=== PATIENT | male | born 1980 | race Caucasian/White ===

== ENCOUNTER 2025-02-27 19:09 | Emergency (ER) | payer MEDICAID, SELFPAY ==
[2025-02-27 19:11] VITALS: BMI 25.7
[2025-02-27 19:54] VITALS: BP 144/85; PULSE 105; RESP 20; TEMP 37.3; O2SAT 98
--- NOTE | 2025-02-27 20:04 | XR_ITS ---
Examination: Foot, left, 3 views Technique: AP, oblique, lateral views foot, 3 views Date and time of exam: February 27, 20252016 hrs. Indications: Injury to the foot 4 days ago, foot pain Findings: Soft tissue swelling plantar aspect of foot with subtle areas of air density No opaque foreign body No fracture No cortical bone destruction Impression: Soft tissue swelling plantar aspect of the foot, consider ultrasound soft tissue foot follow-up to assess for plantar soft tissue abscess No opaque foreign body
[2025-02-27 20:50] LABS: Basophils # (Auto) 0.0 Thou/mm3 (0.0-0.2); Basophils % (Auto) 0 % (0-2.5); Eosinophils # (Auto) 0.3 Thou/mm3 (0.0-0.5); Eosinophils % (Auto) 2 % (0-10); Hematocrit 46.4 % (41.0-53.0); Hemoglobin 16.1 g/dL (13.5-16.0); Immature Granulocytes Auto 0.03 Thou/mm3 (0.00-0.00); Lymphocytes # (Auto) 2.0 Thou/mm3 (1.0-4.8); Lymphocytes % (Auto) 16 % (10-50); Mean Corpuscular HGB Conc 34.7 g/dl (31.0-37.0); Mean Corpuscular Hemoglobin 30.8 pg (25.0-35.0); Mean Corpuscular Volume 89 fL (80-100); Monocytes # (Auto) 1.0 Thou/mm3 (0.0-0.8); Monocytes % (Auto) 8 % (0-12); Neutrophils # (Auto) 9.0 Thou/mm3 (1.8-7.7); Neutrophils % (Auto) 73 % (37-80); Nucleated Red Blood Cell # 0.00 Thou/mm3 (0.00-0.00); Nucleated Red Blood Cell % 0 /100 WBC (0); Platelet Count 255 Thou/mm3 (140-440); RDW Standard Deviation 42.6 fL (35.1-43.9); Red Blood Count 5.22 Miln/mm3 (4.50-5.90); White Blood Count 12.2 Thou/mm3 (3.8-10.6)
[2025-02-27] MEDS: DIPHTH,PERTUSS(ACELL),TET VAC 0.5 ML SYR- ADULT IMi (21:04)
[2025-02-27 21:07] LABS: Alanine Aminotransferase 20 U/L (10-49); Albumin, Serum 4.2 gm/dL (3.5-5.0); Albumin/Globulin Ratio 1.5 (1.2-2.2); Alkaline Phosphatase 90 U/L (46-116); Anion Gap 11 (7-16); Aspartate Amino Transferase 23 U/L (0-34); BUN/Creatinine Ratio 9 Ratio (12-20); Bilirubin,Total 0.4 mg/dL (0.3-1.2); Blood Urea Nitrogen 8 mg/dL (9-23); Calcium 9.7 mg/dL (8.3-10.6); Calcium (Corrected) 9.7 mg/dL (8.5-10.1); Carbon Dioxide 25.4 mMol/L (20.0-31.0); Chloride 104 mMol/L (98-107); Creatinine (Component) 0.9 mg/dL (0.6-1.3); Estimated Creatinine Clearance 113.9 mL/min (>60); Globulin 2.8 gm/dL (2.3-3.5); Glucose 90 mg/dL (74-106); Osmolality,Calculated 277 (275-295); Potassium 4.1 mMol/L (3.4-5.1); Sodium 140 mMol/L (136-145); Total Protein 7.0 gm/dL (5.7-8.2); eGFR > 60 See Note
--- NOTE | 2025-02-27 21:52 | EDNOTE_ITS ---
ED Skin Abcess FB-RME/HPI General Chief complaint: Extremity Injury, Lower Stated complaint: L FOOT INFECTION Time Seen by Provider: 02/27/25 19:36 Arrival date/time: 02/27/25 19:09 This is a case of 44-year-old male with no medical history came in in the emergency room due to left foot pain swelling and redness for 3 days secondary to a punctured wound on the left foot history of present illness started 3 days prior to arrival in the emergency room patient stepped on a sharp object and sustained a punctured wound patient did not sought consult until today she sought consult in clinic and noted to have redness swelling and discharge and treated as cellulitis and given with amoxicillin due to worsening of the symptoms this patient decided to sought consult in the emergency room patient tetanus shot is not up date Limitations: no limitations Related Data Previous Rx's ?Medication ?Instructions ?Recorded clindamycin HCl 300 mg capsule 300 mg PO Q6H 10 days # 40 caps 02/27/25 doxycycline hyclate 100 mg tablet 100 mg PO BID #20 ta bs 02/27/25 mupirocin 2 % topical ointment 1 applic topical TID #2 2 grams 02/27/25 Allergies Allergy/AdvReac Type Severity Reaction Status Date / Time No Known Allergies Allergy Verified 02/27/25 19:15 Review of Systems Review of Systems Systems Reviewed: All systems reviewed, normal except as documented Constitutional Constitutional: Reports system reviewed and no additional complaints, except as documented Cardiovascular Cardiovascular: Reports system reviewed and no additional complaints, except as documented and Reports as per HPI Respiratory Respiratory: Reports system reviewed and no additional complaints, except as documented and Reports as per HPI Gastrointestinal Gastrointestinal: Reports system reviewed and no additional complaints, except as documented and Reports as per HPI Musculoskeletal Musculoskeletal: Reports system reviewed and no additional complaints, except as documented and Reports as per HPI Neurologic Neurologic: Reports system reviewed and no additional complaints, except as documented and Reports as per HPI Past Medical History Past Medical History NEUROLOGIC: Negative Cerebrovascular Accident or Alzheimer's Disease CARDIAC: Negative Myocardial Infarction or Angina RESPIRATORY: Negative Chronic Obstructive Pulmonary Disease (COPD) or Emphysema GASTROINTESTINAL: Negative Liver Cancer or Pancreatic Cancer MUSCULOSKELETAL: Negative Muscular Dystrophy or Bone Cancer ENDOCRINE: Negative Diabetes Mellitus Type 1 or Diabetes Mellitus Type 2 HEMATOLOGIC: Negative Blood Disorders OTHER HISTORY: Negative Down Syndrome or Developmental Delay Social History SMOKING STATUS: Current every day smoker ED Exam General Limitations: Present no limitations General appearance: Present alert, in no apparent distress and other (Patient is awake alert oriented not in distress nontoxic looking well-hydrated well- nourished) Head Head exam: Present atraumatic, normocephalic and normal inspection Eye Eye exam: Present normal appearance, PERRL and EOMI ENT ENT exam: Present normal exam, normal oropharynx and mucous membranes moist Neck Neck exam: Present normal inspection, full ROM and trachea midline; Absent tenderness, meningismus, lymphadenopathy or thyromegaly Chest Chest inspection: Present normal inspection and symmetric chest wall rise; Absent tenderness, rash or abscess Respiratory Respiratory exam: Present normal lung sounds bilaterally; Absent respiratory distress, wheezes, stridor, accessory muscle use or prolonged expiratory phase Cardiovascular Cardiovascular exam: Present regular rate, normal rhythm and normal heart sounds; Absent bradycardia, tachycardia, irregular rhythm, systolic murmur or diastolic murmur Abdominal Exam Abdominal exam: Present soft and normal bowel sounds; Absent distention, tenderness, guarding, rebound, rigidity, diminished bowel sounds or hyperactive bowel sounds Extremities Exam Extremities exam: Present normal inspection and full ROM Expanded Lower Extremity Exam Foot/toe exam: Present tenderness, swelling, erythema, puncture wound and other (Noted a punctured wound on the left plantar aspect of the left foot no foreign body noted a discharge clear moderate tenderness mild swelling with erythema extending on the left ankle suggestive of cellulitis); Absent abrasion, laceration, ecchymosis, deformity, crepitus, dislocation, amputation, foreign body, calcaneal tenderness, tenderness at base of 5th metatarsal, nail avulsion or subungual hematoma Back Exam Back exam: Present normal inspection and full ROM Neurological Exam Neurological exam: Present alert, oriented X3, CN II-XII intact, normal gait and reflexes normal; Absent motor sensory deficit Psychiatric Psychiatric exam: Present normal affect and normal mood Skin Skin exam: Present warm, dry, intact, normal color and other (Cellulitis left) Course Quality Measures none Orders Category Date Time Status XR foot comp LT min 3V Stat Exams 02/27/25 20:04 Completed CBC Stat Lab 02/27/25 20:21 Completed CMP [Comprehensive Metabolic Panel] Stat Lab 02/27/25 20:21 Completed HYDROcodone/APAP 10/325 [[place] 10/325] Med 02/27/25 20:04 Discontinued 1 tab PO X1 ONE TET,DIP/PERT AC (Adult)-Tdap [Boostrix Adult (Tdap) Med 02/27/25 20:04 Discontinued Vacc] 0.5 ml IMI .ONCE ONE Vancomycin Inj 1,000 mg Med 02/27/25 20:05 Discontinued Sodium Chloride 0.9% 250 ml [Ns] 250 ml IV X1 Vital Signs Vital signs: Vital Signs Temperature 99.2 F 02/27/25 19:54 Pulse Rate 105 H 02/27/25 19:54 Respiratory Rate 20 02/27/25 19:54 Blood Pressure 144/85 H 02/27/25 19:54 Pulse Oximetry (%) 98 02/27/25 19:54 Oxygen Delivery Method Room Air 02/27/25 19:54 Oxygen saturation is 98% in room air Skin / Abscess / Foreign Body MDM Narrative MDM Narrative:: This is a case of 44-year-old male with no medical history came in in the emergency room due to left foot pain swelling and redness for 3 days secondary to a punctured wound on the left foot history of present illness started 3 days prior to arrival in the emergency room patient stepped on a sharp object and sustained a punctured wound patient did not sought consult until today she sought consult in clinic and noted to have redness swelling and discharge and treated as cellulitis and given with amoxicillin due to worsening of the symptoms this patient decided to sought consult in the emergency room patient tetanus shot is not up date physical examination patient is awake alert oriented not in distress nontoxic looking well-hydrated well-nourished noted left plantar tenderness redness swelling discharge from the puncture wound no foreign body no abscess no fluctuance none indurated with streak redness on the left foot extending to the left ankle suggestive of cellulitis blood test showed no leukocytosis no anemia kidney and liver function is normal no electrolyte imbalance glucose is normal x-ray showed no foreign body possible abscess at this point I do not think it is an abscess no fluctuance not indurated it is more on cellulitis patient was given vancomycin here in the emergency room and was given clindamycin and doxycycline wound care was done and apply triple antibiotic and covered with nonadherent gauze wound care was performed and advised patient will follow-up in 2 days for evaluation of cellulitis for any worsening symptoms or any emergent concern return precaution at the ER is advised Patient was discharged with comfortable condition walking with stable gait. Patient verbalized no further complains explained diagnosis and answered patient question. Patient is comfortable with the proposed management plan including the need to follow up with his/her primary care physician and any specialist if applicable Discussed patient for any urgent condition or worsening sx, He/She needed to go to emergency room immediately or call 911. Patient acknowledge the responsibility to follow up as instructed and to monitor her/his symptoms. For any persistence of the symptoms for more than 3-5 days return precaution advised. Discussed the result of the test and was given printed discharge instruction Patient data External records reviewed:: [facility] previous records Clinical information provided by:: patient Social determinants that could affect healthcare access:: none Patient has the following chronic illnesses:: None How is presenting disease/condition affected by chronic disease/condition?: no chronic disease Evaluation data The following diagnostics were reviewed and interpreted by me:: lab results and radiology exam(s) Lab and/or radiology exams considered but not ordered:: Reviewed Interpretation Summary: Reviewed Medications / Prescriptions Medications or Prescriptions considered but not ordered:: Given Medication administrations:: Medication Administration History Discontinued Medications Hydrocodone Bitart/Acetaminophen (Hydrocodone/[place] 10/325 Tab) 1 tab PO X1 ONE Stop: 02/27/25 20:05 Last Admin: 02/27/25 21:04 Dose: 1 tab Documented By: VANI Diphtheria/Tetanus/Acell Pertussis (Diphth,Pertuss(Acell),Tet Vac 0.5 Ml Syr- Adult) 0.5 ml IMi .ONCE ONE Stop: 02/27/25 20:05 Last Admin: 02/27/25 21:04 Dose: 0.5 ml Documented By: VANI Vancomycin HCl 1,000 mg/ (Sodium Chloride) 250 mls @ 150 mls/hr IV X1 ONE Stop: 02/27/25 21:44 Given Consultations Consultation(s) initiated? (list below): No Diagnosis Skin/Abscess Differential Diagnosis: abscess of skin or subcutaneous tissue, urticaria, cellulitis and contact dermatitis Most likely diagnosis given after review of the tests above:: Cellulitis secondary to infected puncture wound on the left foot Admission Indicated Admission indicated?: not indicated Explain why admission is indicated or not indicated:: Not indicated Admission Request Was there a request for admission?: No Admission Attestation Admission request attestation: Not indicated Disposition Plan Disposition Plan: Discharge Discharge Attestation Discharge Attestation: The patient and all family members were given an opportunity to ask questions and understood the discharge instructions. Discharge instructions specifically effects, indications for sooner follow up or return to the emergency department, and the expected course of current diagnosis. Patient condition: Stable Discharge Plan Plan Patient Disposition: HOME (Self Care) Patient condition on transfer: Stable Prescriptions/Referrals Prescriptions/Med Rec: New clindamycin HCl 300 mg capsule 300 mg PO Q6H 10 Days Qty: 40 0RF mupirocin 2 % ointment 1 applic topical TID Qty: 22 0RF doxycycline hyclate 100 mg tablet 100 mg PO BID Qty: 20 0RF Referrals: No Primary/Family,Physician [Primary Care Provider] - In 1 week Problem List Clinical Impression: Cellulitis of left foot, Infected puncture wound of plantar aspect of foot Patient/Caregiver Discharge Instructions Education Materials: ED Cellulitis, ED Puncture Wound (Foot) Additional Instructions: Follow-up with your primary care physician in 2 days for reevaluation it is very important to return in the emergency room in 2 days for reevaluation of the cellulitis worsening symptoms or any emergent concern call 911 or go to the nearest emergency room stop taking amoxicillin continue to take the clindamycin and doxycycline continue wound care continue elevation of the left lower extremities take your medication and finish the course of antibiotic keep wound clean and dry Print Language: Arabic Stand Alone Forms: [place] Award Info., Patient Portal Info Letter LUCIANO/ELADIA Supervising Physician LUCIANO/ELADIA Supervising Physician: Dr. Beaver
[2025-02-27] MEDS: Vancomycin Inj 1,000 MG in SODIUM CHLORIDE 0.9% 250 ML 250 ML 150 MG IV (21:57)
== END 2025-02-27 23:48 | disposition home or self-care (01) ==
PROVIDERS: Nurse Practitioner Family; Emergency Provider Emergency Medicine
DX: S91.332A Puncture wound without foreign body, left foot, initial encounter (principal); L03.116 Cellulitis of left lower limb; W26.9XXA Contact with unspecified sharp object(s), initial encounter; Z23 Encounter for immunization
CPT/HCPCS: 36415; 73630; 80053; 85025; 90471; 90715; 99283; J3373; J7050; A9270